=== PATIENT | male | born 1990 | race African-American/Black ===

== ENCOUNTER 2024-02-05 08:42 | Outpatient (CLI) | payer MEDICAID | END 2024-02-05 23:59 | disposition home or self-care (01) | LOC: RAD 08:42 | PROVIDERS: ATTEND Nurse Practitioner Family | DX: M25.462 Effusion, left knee (principal); M25.562 Pain in left knee | CPT/HCPCS: 73564 ==

== ENCOUNTER 2024-05-31 08:06 | Outpatient (CLI) | payer MEDICAID | END 2024-05-31 23:59 | disposition home or self-care (01) | LOC: MRI 08:06 | PROVIDERS: ATTEND Pediatrics Sports Medicine | DX: S83.242A Other tear of medial meniscus, current injury, left knee, initial encounter (principal); S83.512A Sprain of anterior cruciate ligament of left knee, initial encounter; S83.422A Sprain of lateral collateral ligament of left knee, initial encounter; M21.70 Unequal limb length (acquired), unspecified site; M25.462 Effusion, left knee; M94.262 Chondromalacia, left knee; M25.562 Pain in left knee; X58.XXXA Exposure to other specified factors, initial encounter; Y93.9 Activity, unspecified; Y92.89 Other specified places as the place of occurrence of the external cause; Y99.8 Other external cause status; Y93.89 Activity, other specified | CPT/HCPCS: 73721 ==